=== PATIENT | female | born 1980 | race Caucasian/White ===

== ENCOUNTER 2018-12-23 16:39 | Emergency (ER) | payer MEDICAID ==
[~2018-12-23] VITALS: Ht 154.9 cm; Wt 84.1 kg
[2018-12-23 16:46] VITALS: Ht 154.9 cm; Wt 84.1 kg
[2018-12-23 17:13] LABS: BASOPHILS 0.2 % (0-2); EOSINOPHILS 0.9 % (0-7); HEMATOCRIT 38.8 % (36.0-48.0); HEMOGLOBIN 13.2 g/dL (12-16); IMMATURE GRANULOCYTES 0.8 % (0-5); LYMPHOCYTES 26.9 % (15-50); MCH 30.4 pg (26.0-34.0); MCV 89.4 fL (80.0-100.0); MONOCYTES 5.1 % (2-11); NEUTROPHILS 66.1 % (40-80); PLATELET COUNT 208 10x3/uL (130-400); RBC 4.34 10x6/uL (4.00-5.40); RDW 12.4 % (11.5-14.5); WBC 12.9 10x3/uL (4.8-10.8)
[2018-12-23 17:21] LABS: HCG URINE NEGATIVE (NEGATIVE)
[2018-12-23 17:36] LABS: ALBUMIN 3.7 g/dL (3.4-5.0); ANION GAP 15.8 mmol/L (8-16); BILIRUBIN - TOTAL 0.67 mg/dL (0.2-1.3); CALCIUM 8.8 mg/dL (8.5-10.1); CARBON DIOXIDE 24.9 mmol/L (21.0-32.0); CREATININE - SERUM 0.9 mg/dL (0.6-1.3); POTASSIUM - SERUM 3.7 mmol/L (3.5-5.1); PROTEIN - SERUM 7.7 g/dL (6.4-8.2)
[2018-12-23 20:07] LABS: APPEARANCE CLEAR (CLEAR); BACTERIA MANY /hpf (NONE SEEN); BILIRUBIN NEGATIVE (NEGATIVE); COLOR YELLOW (YELLOW); EPITHELIAL CELLS 0-5 /hpf (0-5); GLUCOSE 250 mg/dL (NEGATIVE); KETONE NEGATIVE (NEGATIVE); MUCUS <1+ /lpf (NONE SEEN); NITRITE NEGATIVE (NEGATIVE); PROTEIN NEGATIVE (NEGATIVE); RED CELLS - URINE 0-5 /hpf (0-5); UROBILINOGEN NORMAL (NORMAL); WHITE CELLS - URINE 25-50 /hpf (0-5)
[2018-12-23 20:08] LABS: AMORPHOUS SEDIMENT <1+ /lpf (NONE SEEN)
[2018-12-23] MEDS ORDERED: MACROBID100 MG PO (22:36)
[2018-12-23] MEDS ORDERED: KEFLEX500 MG PO (22:36)
[2018-12-23 22:49] VITALS: BP 149/93
[2018-12-29 12:19] LABS: CHLAMYDIA TRACHOMATIS, NAA Negative (Negative)
== END 2018-12-23 22:59 | disposition home or self-care (01) ==
LOC: D.ER 16:39
PROVIDERS: Emergency Medicine
DX: A64 Unspecified sexually transmitted disease (principal); N39.0 Urinary tract infection, site not specified

== ENCOUNTER 2019-07-31 18:43 | Emergency (ER) | payer MEDICAID ==
[~2019-07-31] VITALS: Ht 154.9 cm; Wt 86.4 kg
[~2019-07-31 18:43] MED LIST: KEFLEX500 MG PO; MACROBID100 MG PO
[2019-07-31 18:48] VITALS: Ht 154.9 cm; Wt 86.4 kg
[2019-07-31 19:10] LABS: BASOPHILS 0.2 % (0-2); EOSINOPHILS 1.8 % (0-7); HEMATOCRIT 37.6 % (36.0-48.0); HEMOGLOBIN 13.2 g/dL (12-16); IMMATURE GRANULOCYTES 0.4 % (0-5); LYMPHOCYTES 37.8 % (15-50); MCH 30.9 pg (26.0-34.0); MCHC 35.1 g/dL (31.0-37.0); MCV 88.1 fL (80.0-100.0); MEAN PLATELET VOLUME 9.9 fL (7.4-10.4); MONOCYTES 7.5 % (2-11); NEUTROPHILS 52.3 % (40-80); PLATELET COUNT 228 10x3/uL (130-400); RBC 4.27 10x6/uL (4.00-5.40); RDW 12.7 % (11.5-14.5); WBC 9.7 10x3/uL (4.8-10.8)
[2019-07-31 19:18] LABS: INR 1.07 (0.85-1.17); PROTIME 13.4 SECONDS (11.6-15.0)
[2019-07-31 19:19] LABS: APPEARANCE CLEAR (CLEAR); BILIRUBIN NEGATIVE (NEGATIVE); COLOR YELLOW (YELLOW); GLUCOSE NEGATIVE (NEGATIVE); KETONE NEGATIVE (NEGATIVE); NITRITE NEGATIVE (NEGATIVE); PROTEIN NEGATIVE (NEGATIVE); SPECIFIC GRAVITY 1.015 (1.005-1.020); UROBILINOGEN NORMAL (NORMAL)
[2019-07-31 19:21] LABS: BACTERIA FEW /hpf (NONE SEEN); EPITHELIAL CELLS 0-5 /hpf (0-5); RED CELLS - URINE OCC /hpf (0-5); WHITE CELLS - URINE OCC /hpf (0-5)
[2019-07-31 19:22] LABS: HCG URINE NEGATIVE (NEGATIVE)
[2019-07-31 19:28] LABS: ALBUMIN 3.7 g/dL (3.4-5.0); ALKALINE PHOSPHATASE 100 U/L (46-116); ALT (SGPT) 88 U/L (10-68); BILIRUBIN - TOTAL 0.62 mg/dL (0.2-1.3); CALC OSMOLALITY 272 mosm/kg (275-300); CALCIUM 8.6 mg/dL (8.5-10.1); CARBON DIOXIDE 25.2 mmol/L (21.0-32.0); CHLORIDE - SERUM 102 mmol/L (98-107); CREATININE - SERUM 0.9 mg/dL (0.6-1.3); GLUCOSE 106 mg/dL (74-106); POTASSIUM - SERUM 3.5 mmol/L (3.5-5.1); PROTEIN - SERUM 7.5 g/dL (6.4-8.2); SODIUM 137 mmol/L (136-145); UREA NITROGEN 9 mg/dL (7-18); eGFR NON AFRICAN AMERICAN 74 mL/min (90-120)
[2019-07-31 19:40] LABS: CKMB 0.6 U/L (0.0-3.6); CREATINE KINASE 110 UL (21-215); MAGNESIUM - SERUM 1.6 mg/dL (1.8-2.4); TROPONIN-I < 0.017 ng/mL (0.000-0.060)
[2019-07-31 21:48] VITALS: BP 136/86
== END 2019-07-31 21:48 | disposition home or self-care (01) ==
LOC: D.ER 18:43
PROVIDERS: Emergency Medicine
DX: K76.0 Fatty (change of) liver, not elsewhere classified (principal); R16.0 Hepatomegaly, not elsewhere classified

== ENCOUNTER → 2019-09-08 08:27 | Outpatient (CLI) | payer MEDICAID ==
[2019-07-31 18:48] VITALS: BMI 35.9
[2019-09-08 09:16] LABS: BILIRUBIN - DIRECT 0.22 mg/dL (0.00-0.30); BILIRUBIN - INDIRECT 0.94 mg/dL (0.00-1.00); BILIRUBIN - TOTAL 1.16 mg/dL (0.2-1.3); PROTEIN - SERUM 7.4 g/dL (6.4-8.2)
[2019-09-10 11:10] LABS: HEPATITIS C ANTIBODY <0.1 (0.0-0.9)
== END | disposition home or self-care (01) ==
LOC: D.US 08:27
PROVIDERS: ATTEND Internal Medicine Gastroenterology
DX: K76.0 Fatty (change of) liver, not elsewhere classified (principal)